=== PATIENT | female | born 1950 | race Caucasian/White ===

== ENCOUNTER 2025-10-10 13:08 | Outpatient (REF) | payer MEDICARE, SELFPAY | END 2025-10-10 13:09 | disposition home or self-care (01) | LOC: HO.LAB 13:08 | PROVIDERS: PCP Nurse Practitioner; Visit Provider Physician Assistant Medical | DX: R09.89 Other specified symptoms and signs involving the circulatory and respiratory systems (principal) | CPT/HCPCS: 99212 ==

== ENCOUNTER 2025-10-10 13:08 | Outpatient (AMB) | payer MEDICARE, SELFPAY ==
--- OUTSIDE RECORDS SUMMARY | 2024-04-11 06:00 | XMS_ITS ---
Author Organization [facility] [place] Address [address] [facility] 1 [place] [address] Care Team Providers Care Manager Float Name Role Phone Migration, Provider Unavailable Unavailable REASON FOR VISIT Follow-up Appt Encounters Encounter Location Date Provider Diagnosis [address] [address] 04/11/2024 Provider Migration Plan Of Treatment No Information Progress Notes * JAYDA PEREAEDOB:[birth year] (74 yo F)Acc No.[id number]:04/11/2024 Progress Notes Patient: Winsome LEYVANEELA ANDRES Provider: Kathi Kaur :1950 A ge:73 Y S ex:Female Date:04/11/2024 Address:[address] [place], [place] Subjective: * Chief Complaints: * F ollow-up Appt * Ocular Surgical History: Objective: Vision Examination: * Electronic signature of Prov ider Migration on 10/10/2025 at 02:12 PM EST Sign off status: Pending * Provider: Kathi dejesus Migration Date: 0 04/11/2024 Generated for Jolanta longo/Sharon/Ruismitting on: 1 12/11/2024 02:12 PM EST
--- OUTSIDE RECORDS SUMMARY | 2024-10-03 05:30 | XMS_ITS ---
Author Organization [facility] [place] Address [address] [facility] [address] [place] [address] Care Team Providers Care Ax Survey Worker Name Role Phone Migration, Provider Unavailable Unavailable REASON FOR VISIT CPX Encounters Encounter Location Date Provider Diagnosis [facility], [address] [address] 10/03/2024 Provider Migration Plan Of Treatment No Information Progress Notes * JAYDA PEREAEDOB:[birth year] (74 yo F)Acc No.[id number]:10/03/2024 Progress Notes Patient: Winsome ANDRES CRUZ Provider: Kathi Kaur :1950 A ge:73 Y S ex:Female Date:10/03/2024 Address[address] [place], [place] Subjective: * Chief Complaints: * C PX * Ocular Surgical History: Objective: Vision Examination: * Electronic signature of Prov ider Migration on 10/10/2025 at 02:11 PM EST Sign off status: Pending * Provider: Kathi dejesus Migration Date: 12/04/2023 Generated for Jolanta longo/Sharon/Ruismitting on: 12/11/2024 02:11 PM EST
--- OUTSIDE RECORDS SUMMARY | 2024-10-25 05:45 | XMS_ITS ---
Author Organization [facility], [place] Address [address] [facility] 1 [place] [address] Care Team Providers Care Licensed Esthetician Name Role Phone Fly Estrella Unavailable [phone] REASON FOR VISIT Sick Visit Encounters Encounter Location Date Provider Diagnosis [address] [address] 10/25/2024 Fly Estrella Plan Of Treatment No Information Progress Notes * JAYDA PEREAEDOB:[birth year] (74 yo F)Acc No.[id number]:10/25/2024 Progress Notes Patient: ANDRES ABBOTT Provider: Bridgette SMITH :1950 A ge:73 Y S ex:Female Date:10/25/2024 Address:[address] [place] [address] [facility] Subjective: * Chief Complaints: * S ick Visit * Ocular Surgical History: Objective: Vision Examination: * Electronic signature of Brandon Estrella PA-C on 10/10/2025 at 02:11 PM EST Sign off status: Pending * Provider: Bridgette SMITH Date: 0 10/25/2024 Generated for Uniquei qing/Sharon/eTransmitting on: 12/11/2024 02:11 PM EST
--- OUTSIDE RECORDS SUMMARY | 2024-12-22 05:30 | XMS_ITS ---
Author Organization [facility], [place] Address [address] [facility] 1 [place] [address] Care Team Providers Care Revenue Coordinator Name Role Phone Fly Estrella Unavailable [phone] REASON FOR VISIT CPX Encounters Encounter Location Date Provider Diagnosis [address] [address] 12/22/2024 Fly Estrella Plan Of Treatment No Information Progress Notes * BRITJAYDAEDOB:[birth year] (74 yo F)Acc No.[id number]:12/22/2024 Progress Notes Patient: ANDRES ABBOTT Provider: Bridgette SMITH :1950 A ge:73 Y S ex:Female Date:12/22/2024 Address:[address] [place], [place] [id number] Subjective: * Chief Complaints: * C PX * Ocular Surgical History: Objective: Vision Examination: * Electronic signature of Brandon Estrella PA-C on 10/10/2025 at 02:11 PM EST Sign off status: Pending * Provider: Bridgette SMITH Date: 0 12/22/2024 Generated for Uniquei qing/Sharon/eTransmitting on: 1 12/11/2024 02:11 PM EST
--- OUTSIDE RECORDS SUMMARY | 2024-12-22 05:30 | XMS_ITS ---
Author Organization [facility] [place] Address [address] [facility] [address] [place] [address] Care Team Providers Care Outside Upholsterer Name Role Phone Migration, Provider Unavailable Unavailable REASON FOR VISIT CPX Encounters Encounter Location Date Provider Diagnosis [facility], [address] [address] 12/22/2024 Provider Migration Plan Of Treatment No Information Progress Notes * JAYDA PEREAEDOB:[birth year] (74 yo F)Acc No.[id number]:12/22/2024 Progress Notes Patient: Winsome ANDRES CRUZ Provider: Kathi Kaur :1950 A ge:73 Y S ex:Female Date:12/22/2024 Address[address] [place], [place] Subjective: * Chief Complaints: * C PX * Ocular Surgical History: Objective: Vision Examination: * Electronic signature of Prov ider Migration on 10/10/2025 at 02:11 PM EST Sign off status: Pending * Provider: Kathi dejesus Migration Date: 0 12/22/2024 Generated for Jolanta longo/Sharon/Ruismitting on: 1 12/11/2024 02:11 PM EST
--- OUTSIDE RECORDS SUMMARY | 2025-01-24 05:45 | XMS_ITS ---
Author Organization [facility] [place] Address [address] [facility] 1 [place] [address] Care Team Providers Care Loans Officer Name Role Phone Fly Estrella Unavailable [phone] REASON FOR VISIT Follow-up Appt Encounters Encounter Location Date Provider Diagnosis [address] [address] 01/24/2025 Fly Estrella Plan Of Treatment No Information Progress Notes * JAYDA PEREAEDOB:[birth year] (74 yo F)Acc No.[id number]:01/24/2025 Progress Notes Patient: ANDRES ABBOTT Provider: Bridgette SMITH :1950 A ge:74 Y S ex:Female Date:01/24/2025 Address:[facility] [address] [place], [place] Subjective: * Chief Complaints: * F ollow-up Appt * Ocular Surgical History: Objective: Vision Examination: * Electronic signature of Brandon Estrella PA-C on 10/10/2025 at 02:11 PM EST Sign off status: Pending * Provider: Bridgette SMITH Date: 0 01/24/2025 Generated for Uniquei ng/Facleo/eTransmitting on: 1 12/11/2024 02:11 PM EST
[2025-10-10 13:22] VITALS: BP 130/82; PULSE 74; TEMP 36.9; O2SAT 97; BMI 34.9
--- NOTE | 2025-10-10 13:22 | MHC.OFFWIV ---
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 Patient Tobacco Use Status: Former Tobacco user Allergies No Known Allergies Allergy (Verified 10/10/25 13:30) HPI HPI Comments History of Present Illness Details History - The patient is a 74 year old female who presents for evaluation of acute upper respiratory symptoms. - Her symptoms began the previous afternoon and include headache, nonproductive cough, significant rhinorrhea, and a sensation of blocked ears which she attributes to sinus congestion. - She denies diarrhea, abd pain, nausea, or vomiting. - The patient has a past medical history of COVID-19, which she states was confined to her head and did not involve her chest. - She also reports intermittent exertional shortness of breath, which she attributes to her metoprolol medication. - She has no sick contacts or recent travel. - She is a non-smoker. Physical Exam General: Cooperative, healthy appearing, comfortable and no acute distress Orientation/consciousness: Patient oriented x3 Limitations: No limitations Head: Normal to inspection Ears: Hearing grossly normal bilaterally, external ears normal and TM's normal bilaterally Nose: Normal external nose present, normal nares present, and nasal discharge present. Face and sinus: Sinuses nontender to palpation. Mouth: Normal oral and palatal mucosa present and moist mucous membranes noted. Throat: Tonsils normal. Uvula is midline. Posterior oropharynx with erythema and no exudates. Eyes: Appearance normal, both eyes and all related structures Neck: Normal visual inspection, full ROM. No lymphadenopathy noted. Respiratory: Clear to auscultation bilaterally. Normal respiratory effort, able to speak in complete sentences. No respiratory distress, not tachypneic, no tripod positioning and no use of accessory muscles. Cardiovascular: Regular rate and rhythm. Normal S1 and S2 Skin: No rashes or lesions noted Patient was informed and verbally consented to the use of an ambient scribe for clinic note documentation during this visit PFS Social History Patient Tobacco Use Status: Former Tobacco user Review of Systems Const All systems reviewed & are unremarkable except as noted in HPI and below Physical Exam Vital Signs: Last Vital Signs Temp 98.4 F 10/10/25 13:22 Pulse 74 10/10/25 13:22 BP 130/82 10/10/25 13:22 Pulse Ox 97 10/10/25 13:22 Oxygen Delivery Method Room Air 10/10/25 13:22 BMI result Body Mass Index 34.9 Assessment & Plan Assessment & Plan (1) Viral upper respiratory illness: Code(s): J06.9 - Acute upper respiratory infection, unspecified Plan Most likely Acute Upper Respiratory Infection vs flu vs covid vs RSV plan - The patient's presentation is consistent with a viral upper respiratory infection. - A nasopharyngeal swab for COVID-19, influenza, and RSV was performed for diagnostic testing. - Prescriptions for cough medicine, an inhaler, a nasal decongestant, and prednisone were sent to the pharmacy for symptomatic relief. - A follow-up call will be made with the test results later today to guide further management. Orders: Orders SARS-CoV2/FLU/RSV Today R09.89 - Other specified symptoms and signs involving the circulatory and respiratory systems Medications: New fluticasone propionate 50 mcg/actuation administer into each nostril 1 spray intranasal Q12H 16 grams 0RF cetirizine-pseudoephedrine 5-120 mg ER 1 tab PO BID 14 tabs 0RF 7 days benzonatate 100 mg PO bid-tid PRN 21 caps 0RF Cough 7 days prednisone 40 mg (2 x 20 mg) PO DAILY 10 tabs 0RF 5 days Coding Level of Care Code Est Pt Level 3 (47610) Diagnoses Viral upper respiratory illness J06.9
--- OUTSIDE RECORDS SUMMARY | 2025-10-10 14:11 | XMS_ITS | Clinical Summary ---
Author Organization [facility] Address [address] [place] [address] Care Team Providers Care Post Anesthesia Care Unit Nurse Name Role Phone Jesse Anthony MD Primary Care Provider [phone] Allergies No known active allergies Social History Tobacco Use Types Packs/Day Years Used Date Smoking Tobacco: Never Assessed Comments No Sex and Gender Information Value Date Recorded Sex Assigned at Not on file Legal Sex Female 3:23 PM EST Gender Identity Not on file Sexual Orientation Not on file Last Filed Vital Signs Vital Sign Reading Time Taken Comments Blood Pressure 187/81 12/16/2021 5:51 PM EST Pulse 56 12/16/2021 5:51 PM EST Temperature 36.5 C (97.7 F) 12/16/2021 5:51 PM EST Respiratory Rate 18 12/16/2021 5:51 PM EST Oxygen Saturation 99% 12/16/2021 5:51 PM EST Inhaled Oxygen Concentration - - Weight - - Height - - Body Mass Index - - Plan of Treatment Health Maintenance Due Date Last Done Comments Advance Care Planning 1950 Hepatitis C Virus Screening 1950 DTaP/Tdap/Td Vaccines (1 - Tdap) 12/27/1970 Mammogram 1991 Colonoscopy 12/27/1996 Pneumococcal Vaccines 50+ (1 of 1 - PCV) 12/27/2001 Zoster (Shingles) Vaccine (1 of 2) 12/27/2001 DXA Bone Density (Females,Ag es 65 and older) 12/27/2016 Influenza Vaccine 05/19/2025 COVID-19 Vaccine ( - 2024-2 6 season) 2025 RSV Vaccine 50 years and old er and Patients (1 - 1-dose 75+ series) 12/27/2026 Hepatitis B Vaccines Aged Out No long er eligible based on patient's age to complete this topic Insurance [facility] [employer] Care Teams Post Anesthesia Care Unit Nurse Relationship Specialty Start Date End Date Jesse Anthony MD [address] [place] [id number] PCP - General 12/16/21
--- OUTSIDE RECORDS SUMMARY | 2025-10-10 14:11 | XMS_ITS | Patient Health Record ---
Author Organization [facility], [place] Address [address] [facility] [address] [place] [address] Care Team Providers Care Radiology Special Procedure Tech Name Role Phone Fly Estrella Unavailable [phone] Migration, Provider Unavailable Unavailable Reason For Referral No Information Encounters Encounter Location Date Provider Diagnosis [facility] [place] [address] [address] 10/25/2024 Fly Estrella [facility] [place] [address] [address] 12/22/2024 Fly Estrella [facility] [place] [address] [address] 12/22/2024 Provider Migration [facility] [address] [facility] [address] [address] 01/24/2025 Fly Estrella Plan Of Treatment No Information Insurance Providers Payer Name Payer Address Payer Phone Subscriber Number Group Number Insured Name Patient Relationship to Insured Coverage Start Date Coverage End Date [employer] [place] [employer] Pf [address] [place] [phone] [id number] ANDRES PEREA Self - patient is the insured
--- OUTSIDE RECORDS SUMMARY | 2025-10-10 14:11 | XMS_ITS | Encounter Summary ---
Author Organization [facility] Address [address] [place] [address] Care Team Providers Care Facility Attendant Name Role Phone Jesse Anthony MD Primary Care Provider [phone] Encounter Details Date Type Department Care Team (Late st Contact Info) Description 10/25/2024 Lab Requisition [facility] - Main Lab [address] [facility] [place] [id number] Fly Estrella PA [address] [facility] [address] [place] [address] Acute upper respiratory infection, unspecified Social History Tobacco Use Types Packs/Day Years Used Date Smoking Tobacco: Former Smokeless Tobacco: Never Alcohol Use Standard Drinks/Week Comments Yes 0 (1 standard drink = 0.6 oz pur e alcohol) Comments Unknown Sex and Gender Information Value Date Recorded Sex Assigned at Female 01/04/2025 11:17 AM EDT Legal Sex Female 11:35 AM EDT Gender Identity Female 01/04/2025 11:17 AM EDT Sexual Orientation Choose not to disclose 2024 11:17 AM EDT documented as of this encounter Plan of Treatment Not on file documented as of this encounter Procedures Procedure Name Priority Date/Time Associated Diagnosis Comments [id number], RSV, FLU A AND B QUALITATIVE RT-PCR, LOCAL REFERENCE LAB Routine 10/25/2024 12:00 AM EST Acute upper respiratory infection, unspecified documented in this encounter Results * [id number], RSV, Influenza A and B qualitative RT-PCR (10/25/2024 12:00 AM EST) SARS COV-2 Not Detected Not Detected LAB MOLECULAR DIAGNOSTICS METHOD 10/25/2024 11:44 PM [facility] Comment: Disclaimer: The manner in which this information is used to guide patient care is the responsibility of the healthcare provider. Testing was performed using the [employer] Alinity m SARS-CoV-2 test. This test has been authorized by FDA under an Emergency Use Authorization (EUA). This test is only authorized for the duration of time the declaration that circumstances exist justifying the authorization of the emergency use of in vitro diagnostic tests for detection of SARS-CoV-2 virus and/or diagnosis of COVID-19 infection under section 564(b)(1) of the Act, 21 U.S.C. 360bbb- 3(b)(1), unless the authorization is terminated or revoked sooner. Fact sheet for Healthcare Providers can be found at: https://www.fda.gov/media/475151/download Fact sheet for Patients can be found at: https://www.fda.gov/media/292505/download Influenza A PCR Not Detected Not Detected LAB MOLECULAR DIAGNOSTICS METHOD 10/25/2024 11:44 PM EST [facility] Influenza B PCR Not Detected Not Detected LAB MOLECULAR DIAGNOSTICS METHOD 10/25/2024 11:44 PM EST [facility] RSV PCR Not Detected Not Detected LAB MOLECULAR DIAGNOSTICS METHOD 10/25/2024 11:44 PM [facility] Swab Nasopharyngeal structure / Unknown 10/25/2024 10/25/2024 6:11 PM EST us Fly SMITH LAB MICROBIOLOGY - GENERAL ORD ERABLES Final Result [facility] [address] [place] [address], documented in this encounter Visit Diagnoses Diagnosis Acute upper respiratory infection, unspecified documented in this encounter Additional Health Concerns Infection Onset Date Last Indicated Resolved Time Respiratory Rule-Out 10/25/2024 10/25/2024 025 11:44 PM EST documented as of this encounter Care Teams Facility Attendant Relationship Specialty Start Date End Date Jesse Anthony MD [address] [place] [id number] PCP - General Internal Medicine 10/07/11 documented as of this encounter
--- OUTSIDE RECORDS SUMMARY | 2025-10-10 14:11 | XMS_ITS | Encounter Summary ---
Author Organization [facility] Address [address] [place] [address] Care Team Providers Care Customer Program Specialist Name Role Phone Jesse Anthony MD Primary Care Provider [phone] Encounter Details Date Type Department Care Team (Late st Contact Info) Description 12/22/2024 Lab Requisition [facility] - Main Lab [address] [facility] [place] [address] Luis Garrett MD [address] [facility] [address] [place] [phone] Urinary tract infection, site not specified Social History Tobacco Use Types Packs/Day Years [...] on file documented as of this encounter Visit Diagnoses Diagnosis Urinary tract infection, site not specified documented in this encounter Care Teams Customer Program Specialist Relationship Specialty Start Date End Date Jesse Anthony MD [address] [facility] [address] [place] [phone] PCP - General Internal Medicine 10/07/11 documented as of this encounter
--- OUTSIDE RECORDS SUMMARY | 2025-10-10 14:11 | XMS_ITS | Clinical Summary ---
Author Organization [facility] Address [address] [place] [address] Care Team Providers Care Flow Floor Attendant Name Role Phone Ming Anthony MD Primary Care Provider [phone] Surgical History Surgery Date Site/Laterality Comments HERNIA REPAIR PROCEDURE: AK REPAIR FIRST ABDOMINAL WALL HERNIA CHOLECYSTECTOMY PROCEDURE: AK LAPAROSCOPY SURG CHOLECYSTECTOMY OTHER SURGICAL HISTORY PROCEDURE: HISTORICAL MELANOMA KNEE SURGERY PROCEDURE: HISTORICAL KNEE SURGERY; COMMENT: maniscus and left knee replacement Medical History Medical History Date Comments Hypertension DX:Hypertension Hypothyroidism DX:Hypothyroidis m Family History Medical History Relation Name Comments Diabetes Father Prostate cancer Father Stroke Father Lung cancer Mother Other: venacava syndrome Mother Relation Name Status Comments Father Mother Social History Tobacco Use Types Packs/Day Years [...] not to disclose 2024 11:17 AM EDT Last Filed Vital Signs Vital Sign Reading Time Taken Comments Blood Pressure 143/95 04/16/2022 10:49 AM EDT Pulse 67 04/16/2022 10:49 AM EDT Temperature - - Respiratory Rate - - Oxygen Saturation - - Inhaled Oxygen Concentration - - Weight 125 kg (276 lb) 08/22/2022 10:25 AM EDT Height 174 cm (5' 8.5 ) 04/16/2022 10:49 AM EDT Body Mass Index 41.36 04/16/2022 10:49 AM EDT Plan of Treatment Health Maintenance Due Date Last Done Comments Colorectal Cancer Screening: Colonoscopy 1950 Zoster Vaccines (1 of 2) 12/27/2001 Falls Risk Assessment 03/15/2020 Hepatitis C Screening 03/15/2020 Medicare Annual Wellness Visit 03/15/2020 Social Influencers of Health Screening 03/15/2020 Breast Cancer Screening 07/09/2024 07/09/20 22, 10/10/2019, 03/24/2018 Depression Screening 10/19/2024 COVID-19 Vaccine ( season) 2025 09/23/2024, 10/23/2023, 08/08/2022, Additional history exists Influenza Vaccine (#1) 2025 , 06/19/2022, 06/08/2021, Additional history exists Hypertension/CHF/CAD Annual BMP Blood Test 12/22/2025 12/22/2024, 12/16/2021, 12/16/2021 Osteoporosis Screening (Bone Density Screening) 06/15/2028 06/15/2018 Cholesterol Screening (Lipid Panel) 12/22/2029 12/22/2024 DTaP,Tdap,and Td Vaccines (3 - Td or Tdap) 05/16/2034 05/16/2024, 10/16/2006 Pneumococcal Vaccine: 50+ Years Completed 05/23/2018, 01/20/2017 RSV Immunization Adult Patients Completed 01/01/2024 HIB Vaccines Aged Out No longer eligi ble based on patient's age to complete this topic HPV Vaccines Aged Out No longer eligi ble based on patient's age to complete this topic Hepatitis A Vaccines Aged Out No long er eligible based on patient's age to complete this topic Hepatitis B Vaccines Aged Out No long er eligible based on patient's age to complete this topic IPV Vaccines Aged Out No longer eligi ble based on patient's age to complete this topic MMR Vaccines Aged Out No longer eligi ble based on patient's age to complete this topic Meningococcal ACWY Vaccine Aged Out N o longer eligible based on patient's age to complete this topic Meningococcal B Vaccine Aged Out No l onger eligible based on patient's age to complete this topic RSV Immunization Patients Under 20 months Aged Out No longer eligible based on patient's age to complete this topic Varicella Vaccines Aged Out No longer eligible based on patient's age to complete this topic Procedures Procedure Name Priority Date/Time Associated Diagnosis Comments COMPREHENSIVE METABOLIC PANEL Routine 12/22/2024 12:00 AM EST Hypothyroidism, unspecified Other fatigue Encounter for general adult medical examination without abnormal findings Gout, unspecified Vitamin D deficiency, unspecified LIPID PANEL WITH REFLEX TO DIRECT LDL Routine 12/22/2024 12:00 AM EST Hypothyroidism, unspecified Other fatigue Encounter for general adult medical examination without abnormal findings Gout, unspecified Vitamin D deficiency, unspecified [facility] SCREENING DIGITAL Routine 07/09/2022 3:13 PM EDT Encounter for screening mammogram for malignant neoplasm of breast [facility] DEXA AXIAL SKELETON Routine 06/15/2018 10:27 AM EDT Encounter for screening for osteoporosis from Last 3 Months or Most Recently Relevant to Health Maintenance Results * (ABNORMAL) Lipid panel with reflex to direct LDL (12/22/2024 12:00 AM EST) Cholesterol 230(H) 0 - 200 mg/dL LAB CHEMISTRY METHOD 12/22/2024 7:20 PM [facility] Triglycerides 107 0 - 150 mg/dL LAB CHEMISTRY METHOD 12/22/2024 7:20 PM [facility] HDL 68 >=40 mg/dL LAB CHEMISTRY METHOD 12/22/2024 7:20 PM [facility] LDL Calculated 141(H) 0 - 100 mg/dL LAB CHEMISTRY METHOD 12/22/2024 7:20 PM [facility] VLDL Cholesterol Julio C 21.4 mg/dL LAB CHEMISTRY METHOD 12/22/2024 7:20 PM [facility] Non HDL Chol. (LDL+VLDL) 162(H) <145 mg/dL LAB CHEMISTRY METHOD 12/22/2024 7:20 PM [facility] Chol/HDL Ratio 3.4 0.0 - 4.4 LAB CHEMISTRY METHOD 12/22/2024 7:20 PM [facility] Blood Venous blood specimen / Unknown 12/22/2024 12/22/2024 6:11 PM EST us Fly [facility]ITH LAB BLOOD ORDERABLES Final Res ult [facility] [address] [place] [address], [place] [phone] * Comprehensive metabolic panel (12/22/2024 12:00 AM EST) Sodium 138 133 - 145 mmol/L LAB CHEMISTRY METHOD 12/22/2024 7:21 PM [facility] Potassium 4.9 3.5 - 5.5 mmol/L LAB CHEMISTRY METHOD 12/22/2024 7:21 PM [facility] Chloride 104 96 - 110 mmol/L LAB CHEMISTRY METHOD 12/22/2024 7:21 PM [facility] CO2 26 21 - 32 mmol/L LAB CHEMISTRY METHOD 12/22/2024 7:21 PM [facility] Anion Gap 8 3 - 11 LAB CHEMISTRY METHOD 12/22/2024 7:21 PM [facility] Glucose 76 70 - 100 mg/dL LAB CHEMISTRY METHOD 12/22/2024 7:21 PM [facility] BUN 11 5 - 25 mg/dL LAB CHEMISTRY METHOD 12/22/2024 7:21 PM [facility] Creatinine 0.74 0.50 - 1.10 mg/dL LAB CHEMISTRY METHOD 12/22/2024 7:21 PM [facility] eGFR 86 >=60 mL/min/1. 73m2 LAB CHEMISTRY METHOD 12/22/2024 7:21 PM [facility] Comment:Calculation based on the Chronic Kidney Disease Epidemiology Collaboration (CKD-EPI) equation refit without adjustment for race. BUN/Creatinine Ratio 14.9 LAB CHEMISTRY METHOD 12/22/2024 7:21 PM [facility] Calcium 9.4 8.5 - 10.5 mg/dL LAB CHEMISTRY METHOD 12/22/2024 7:21 PM [facility] AST (SGOT) 22 10 - 42 unit/L LAB CHEMISTRY METHOD 12/22/2024 7:21 PM [facility] ALT (SGPT) 19 10 - 60 unit/L LAB CHEMISTRY METHOD 12/22/2024 7:21 PM [facility] Alkaline Phosphatase 110 42 - 121 unit/L LAB CHEMISTRY METHOD 12/22/2024 7:21 PM [facility] Total Protein 6.6 6.0 - 8.0 g/dL LAB CHEMISTRY METHOD 12/22/2024 7:21 PM [facility] Albumin 3.3 3.2 - 5.0 g/dL LAB CHEMISTRY METHOD 12/22/2024 7:21 PM [facility] Total Bilirubin 0.5 0.0 - 1.4 mg/dL LAB CHEMISTRY METHOD 12/22/2024 7:21 PM [facility] Blood Venous blood specimen / Unknown 12/22/2024 12/22/2024 6:11 PM EST us [facility] LAB BLOOD ORDERABLES Final Res ult [facility] [address] [place] [address], [place] [phone] * KALLIE SCREENING DIGITAL (07/09/2022 3:13 PM EDT) Anatomical Region Laterality Modality Mammography 07/09/2022 10:0 9 AM EDT Narrative 07/09/2022 3:13 PM EDT [facility] Diagnostic Imaging Department [address] [place] [address] Patient: ANDRES WILLS /Age/Sex: 1950 - 71 - F Unit#: [id number] Location/Status: [facility] CLI Mnemonic/Ordering Site: [facility] Ordering Physician: MING ANTHONY MD Kallie Screening Digital - 07/09/22 - 1105 History: Bilateral breast cancer screening. Technique: Bilateral digital mammography. Conventional CC and MLO projections with tomosynthesis MLO views and computer aided detection. Findings: Comparison: [facility] 10/10/2019, dating back to 01/17/2013. Breast tissue is mostly fatty replaced (category a density) bilaterally (as calculated by EXPOpara software). There are benign calcifications bilaterally. There is no suspicious group of microcalcification, no suspicious mass, architectural distortion or suspicious asymmetry. Impression: No evidence of malignancy. BIRADS category 2, benign findings, 3342F 47382, 83225 Note: Patient information entered into a reminder system with a target due date for the next mammogram; PQRI II 7018F Dictating Physician: MIGUELITO TYLER MD Electronically Signed by: MIGUELITO TYLER MD Dic Date/Time: 07/09/22 1509 Sign date/Time: 07/09/22 1513 Procedure Note Miguelito Tyler MD - 10/08/2022 [facility] Diagnostic Imaging Department [address] [place] [id number] Patient: ANDRES WILLS Fadi Herron/Age/Sex: 1950 - 71 - F Unit#: [id number] Location/Status: SPDIMAM/REG CLI Mnemonic/Ordering Site: [facility] Ordering Physician: MING ANTHONY MD Kallie Screening Digital - 07/09/22 - 1105 History: Bilateral breast cancer screening. Technique: Bilateral digital mammography. Conventional CC and MLOprojections with tomosynthesis MLO views and computer aided detection. Findings: Comparison: [facility] 10/10/2019, dating back to 01/17/2013. Breast tissue is mostly fatty replaced (category a density) bilaterally(as calculated by [employer] Volpara software). There are benigncalcifications bilaterally. There is no suspicious group of microcalcification, nosuspicious mass, architectural distortion or suspicious asymmetry. Impression: No evidence of malignancy. BIRADS category 2, benign findings, 3342F 86757, [address]321 Note: Patient information entered into a reminder system with a targetdue date for the next mammogram; PQRI II 7025F Dictating Physician: MIGUELITO TYLER MD Electronically Signed by: MIGUELITO TYLER MD Dic Date/Time: 07/09/22 1508 Sign date/Time: 07/09/22 1513 us Ming Anthony MD IMG BI PROCEDURES Final Result * KALLIE DEXA AXIAL SKELETON (06/15/2018 10:27 AM EDT) Anatomical Region Laterality Modality Mammography 06/15/2018 9:27 AM EDT Narrative 06/15/2018 10:27 AM EDT [facility] Diagnostic Imaging Department [address] [place], [place] [id number] Patient: ANDRES WILLS Fadi OwensB./Age/Sex: 1950 - 67 - F Unit#: [id number] Location/Status: SPDIMAM/REG CLI Mnemonic/Ordering Site: [facility] Ordering Physician: DEMARCUS MCQUEEN MD Kallie Dexa Axial Skeleton - 06/15/184 HISTORY: The patient is a 67-year-old postmenopausal female with clinical concern for metabolic bone disease. FINDINGS: Dual energy x-ray absorptiometry of the lumbar spine and femurs is performed. The mean bone mineral density at L1-3 is 1.133 gm/cm2 which is 97% of that of young normals and 101% of that of age matched controls. This yields a T- score of -0.3 and a Z-score of 0.1 and there is therefore no evidence of osteoporosis or osteopenia here. The mean bone mineral density of the femurs bilaterally is 1.025 gm/cm2 which is 102% of that of young normals and 108% of that of age matched controls. This yields a T-score of 0.1 and a Z-score of 0.6 and there is therefore no evidence of osteoporosis or osteopenia here. IMPRESSION: 1. There is no evidence of osteoporosis or osteopenia. There has been an increase of 0.1% in bone mineral density in the lumbar spine since the prior examination of 08/05/2011. There has been a decrease of 10.1% in bone mineral density in the right femur and a decrease of 7.9% in bone mineral density in the left femur. 2. FRAX analysis yields a 10-year probability of major osteoporotic fracture of 6.5% and a 10-year probability of hip fracture of 0.2%. Code 46080 Dictating Physician: PHILOMENA GUSMAN MD Electronically Signed by: PHILOMENA GUSMAN MD Dic Date/Time: 06/15/18 1025 Sign date/Time: 06/15/18 1027 Procedure Note Philomena Gusman MD - 10/07/2022 [facility] Diagnostic Imaging Department [address] [place] [address] Patient: ANDRES WILLS D.O.B./Age/Sex: 1950 67 - F Unit#: [id number] Location/Status: [facility] Mnemonic/Ordering Site: [facility] Ordering Physician: DEMARCUS MCQUEEN MD [facility] Dexa Axial Skeleton - 06/15/18 - 1014 HISTORY: The patient is a 67-year-old postmenopausal female withclinical concern for metabolic bone disease. FINDINGS: Dual energy x-ray absorptiometry of the lumbar spine and femursis performed. The mean bone mineral density at L1-3 is 1.133 gm/cm2 which is97% of that of young normals and 101% of that of age matched controls. Thisyields a T- score of -0.3 and a Z-score of 0.1 and there is therefore no evidence of osteoporosis or osteopenia here. The mean bone mineral density of the femurs bilaterally is 1.025 gm/vt0tcdvy is 102% of that of young normals and 108% of that of age matched controls.This yields a T-score of 0.1 and a Z-score of 0.6 and there is therefore noevidence of osteoporosis or osteopenia here. IMPRESSION: 1. There is no evidence of osteoporosis or osteopenia. There has beenan increase of 0.1% in bone mineral density in the lumbar spine since theprior examination of 08/05/2011. There has been a decrease of 10.1% in bonemineral density in the right femur and a decrease of 7.9% in bone mineral densityin the left femur. 2. FRAX analysis yields a 10-year probability of major osteoporoticfracture of 6.5% and a 10-year probability of hip fracture of 0.2%. Code 35715 Dictating Physician: PHILOMENA GUSMAN MD Electronically Signed by: PHILOMENA GUSMAN MD Dic Date/Time: 06/15/18 1025 Sign date/Time: 06/15/18 1027 Demarcus Mcqueen MD IMG BI PROCEDURES Final Re sult from Last 3 Months or Most Recently Relevant to Health Maintenance Insurance MEDIC[place] Care Teams Flow Floor Attendant Relationship Specialty Start Date End Date Ming Anthony MD [address] [place] [phone] PCP - General Internal Medicine 10/07/11
--- OUTSIDE RECORDS SUMMARY | 2025-10-10 14:11 | XMS_ITS | Encounter Summary ---
Author Organization [facility] Address [address] [place] [address] Care Team Providers Care Seat Covers Trimmer Name Role Phone Jesse Anthony MD Primary Care Provider [phone] Encounter Details Date Type Department Care Team (Late st Contact Info) Description 12/22/[address] [facility] - Main Lab [address] [facility] [place] [id number] Fly Estrella PA [address] [facility] [address] [place] [address] Hypothyroidism, unspecified; Other fatigue; Encounter for general adult medical examination without abnormal findings; Gout, unspecified; Vitamin D deficiency, unspecified Social History Tobacco Use Types Packs/Day [...] Procedure Name Priority Date/Time Associated Diagnosis Comments SST - GOLD Routine 12/22/2024 12:00 AM EST Hypothyroidism, unspecified Other fatigue Encounter for general adult medical examination without abnormal findings Gout, unspecified Vitamin D deficiency, unspecified LIPID PANEL WITH REFLEX TO DIRECT LDL Routine 12/22/2024 12:00 AM EST Hypothyroidism, unspecified Other fatigue Encounter for general adult medical examination without abnormal findings Gout, unspecified Vitamin D deficiency, unspecified CBC WITH AUTO DIFFERENTIAL Routine 12/22/2024 12:00 AM EST Hypothyroidism, unspecified Other fatigue Encounter for general adult medical examination without abnormal findings Gout, unspecified Vitamin D deficiency, unspecified VITAMIN D 25 HYDROXY Routine 12/22/2024 12:00 AM EST Hypothyroidism, unspecified Other fatigue Encounter for general adult medical examination without abnormal findings Gout, unspecified Vitamin D deficiency, unspecified CBC AND DIFFERENTIAL Routine 12/22/2024 12:00 AM EST Hypothyroidism, unspecified Other fatigue Encounter for general adult medical examination without abnormal findings Gout, unspecified Vitamin D deficiency, unspecified THYROID STIMULATING HORMONE Routine 12/22/2024 12:00 AM EST Hypothyroidism, unspecified Other fatigue Encounter for general adult medical examination without abnormal findings Gout, unspecified Vitamin D deficiency, unspecified THYROXINE FREE Routine 12/22/2024 12:00 AM EST Hypothyroidism, unspecified Other fatigue Encounter for general adult medical examination without abnormal findings Gout, unspecified Vitamin D deficiency, unspecified HEMOGLOBIN A1C Routine 12/22/2024 12:00 AM EST Hypothyroidism, unspecified Other fatigue Encounter for general adult medical examination without abnormal findings Gout, unspecified Vitamin D deficiency, unspecified COMPREHENSIVE METABOLIC PANEL Routine 12/22/2024 12:00 AM EST Hypothyroidism, unspecified Other fatigue Encounter for general adult medical examination without abnormal findings Gout, unspecified Vitamin D deficiency, unspecified documented in this encounter Results * SST tube (12/22/2024 12:00 AM EST) Extra Tube Hold for add-ons. 12/22/2024 8:01 PM EST [facility] Comment:Auto resulted. Blood Venous blood specimen / Unknown 12/22/2024 12/22/2024 6:11 PM EST us Fly SMITH LAB BLOOD ORDERABLES Final Res ult [facility] [address] [place] [address], [place] [phone] * (ABNORMAL) CBC auto differential (12/22/2024 12:00 AM EST) WBC 5.0 4.8 - 10.8 K/mcL LAB HEMETOLOGY METHOD 12/22/2024 7:58 PM [facility] RBC 4.60 3.80 - 4.80 M/mcL LAB HEMETOLOGY METHOD 12/22/2024 7:58 PM [facility] Hemoglobin 13.8 11.5 - 16.0 g/dL LAB HEMETOLOGY METHOD 12/22/2024 7:58 PM [facility] Hematocrit 44.0 35.0 - 47.0 % LAB HEMETOLOGY METHOD 12/22/2024 7:58 PM [facility] MCV 95.9 79.0 - 98.0 FL LAB HEMETOLOGY METHOD 12/22/2024 7:58 PM [facility] MCH 30.1 27.0 - 32.0 pcg LAB HEMETOLOGY METHOD 12/22/2024 7:58 PM [facility] MCHC 31.4(L) 32.0 - 37.0 g/dL LAB HEMETOLOGY METHOD 12/22/2024 7:58 PM [facility] RDW 11.9 11.0 - 15.0 % LAB HEMETOLOGY METHOD 12/22/2024 7:58 PM [facility] Platelets 314 130 - 400 K/mcL LAB HEMETOLOGY METHOD 12/22/2024 7:58 PM [facility] MPV 10.4 7.0 - 11.0 FL LAB HEMETOLOGY METHOD 12/22/2024 7:58 PM [facility] NRBC 0.0 <1.0 % LAB HEMETOLOGY METHOD 12/22/2024 7:58 PM [facility] NRBC Absolute 0.00 <0.10 K/mcL LAB HEMETOLOGY METHOD 12/22/2024 7:58 PM [facility] Neutrophils Relative 52.1 % LAB HEMETOLOGY METHOD 12/22/2024 7:58 PM [facility] Lymphocytes Relative 34.9 % LAB HEMETOLOGY METHOD 12/22/2024 7:58 PM [facility] Monocytes Relative 7.2 % LAB HEMETOLOGY METHOD 12/22/2024 7:58 PM [facility] Eosinophils Relative 3.6 % LAB HEMETOLOGY METHOD 12/22/2024 7:58 PM [facility] Basophils Relative 1.8 % LAB HEMETOLOGY METHOD 12/22/2024 7:58 PM [facility] Immature Granulocytes Relative 0.4 % LAB HEMETOLOGY METHOD 12/22/2024 7:58 PM [facility] Neutrophils Absolute 2.62 1.50 - 7.00 K/mcL LAB HEMETOLOGY METHOD 12/22/2024 7:58 PM [facility] Lymphocytes Absolute 1.75 1.00 - 5.00 K/mcL LAB HEMETOLOGY METHOD 12/22/2024 7:58 PM [facility] Monocytes Absolute 0.36 0.20 - 1.00 K/mcL LAB HEMETOLOGY METHOD 12/22/2024 7:58 PM [facility] Eosinophils Absolute 0.18 0.00 - 0.50 K/mcL LAB HEMETOLOGY METHOD 12/22/2024 7:58 PM [facility] Basophils Absolute 0.09 0.00 - 0.20 K/mcL LAB HEMETOLOGY METHOD 12/22/2024 7:58 PM EST [facility] Immature Granulocytes Absolute 0.02 0.00 - 0.03 K/[facility] LAB HEMETOLOGY METHOD 12/22/2024 7:58 PM EST [facility] Blood Venous blood specimen / Unknown 12/22/2024 12/22/2024 6:11 PM EST Fly SMITH LAB BLOOD ORDERABLES Final Res ult [facility] [address] [place] [address], [place] [phone] * (ABNORMAL) Vitamin D 25 hydroxy (12/22/2024 12:00 AM EST) Vit D, 25-Hydroxy 21.7(L) 30.0 - 80.0 ng/mL LAB CHEMISTRY METHOD 12/22/2024 7:27 PM EST [facility] Blood Venous blood specimen / Unknown 12/22/2024 12/22/2024 6:11 PM EST Fly [facility] LAB BLOOD ORDERABLES Final Res ult [facility] [address] [place] [address], [place] [phone] * (ABNORMAL) Thyroid stimulating hormone (12/22/2024 12:00 AM EST) TSH 0.24(L) 0.40 - 4.00 mcIU/mL LAB CHEMISTRY METHOD 12/22/2024 7:28 PM EST [facility] Blood Venous blood specimen / Unknown 12/22/2024 12/22/2024 6:11 PM EST us Fly SMITH LAB BLOOD ORDERABLES Final Res ult Performing Organization Address City/[facility]/ZIP Co de Phone Number [facility] [address] [place] [address], [place] [phone] * Hemoglobin A1c (12/22/2024 12:00 AM EST) Hemoglobin A1C 5.6 <6.5 % LAB CHEMISTRY METHOD 12/23/2024 10:33 AM EST [facility] Mean Bld Glu Estim. 114 mg/dL LAB CHEMISTRY METHOD 12/23/2024 10:33 AM EST [facility] Blood Venous blood specimen / Unknown 12/22/2024 12/22/2024 6:11 PM EST us Fly [facility] LAB BLOOD ORDERABLES Final Res ult Performing Organization Address [facility]/ZIP Co de Phone Number [facility] [address] [place] [address], [place] [phone] * Thyroxine free (12/22/2024 12:00 AM EST) Free T4 1.40 0.70 - 1.80 ng/dL LAB CHEMISTRY METHOD 12/22/2024 7:28 PM EST [facility] Blood Venous blood specimen / Unknown 12/22/2024 12/22/2024 6:11 PM EST Fly [facility] LAB BLOOD ORDERABLES Final Res ult Performing Organization Address City/[facility]/ZIP Co de Phone Number [facility] [address] [place] [address], [place] [phone] * (ABNORMAL) Lipid panel with reflex to direct LDL (12/22/2024 12:00 AM EST) Cholesterol 230(H) 0 - 200 mg/dL LAB CHEMISTRY METHOD 12/22/2024 7:20 PM EST [facility] Triglycerides 107 0 - 150 mg/dL LAB CHEMISTRY METHOD 12/22/2024 7:20 PM [facility] HDL 68 >=40 mg/dL LAB CHEMISTRY METHOD 12/22/2024 7:20 PM [facility] LDL Calculated 141(H) 0 - 100 mg/dL LAB CHEMISTRY METHOD 12/22/2024 7:20 PM [facility] VLDL Cholesterol Julio C 21.4 mg/dL LAB CHEMISTRY METHOD 12/22/2024 7:20 PM [facility] Non HDL Chol. (LDL+VLDL) 162(H) <145 mg/dL LAB CHEMISTRY METHOD 12/22/2024 7:20 PM [facility] Chol/HDL Ratio 3.4 0.0 - 4.4 LAB CHEMISTRY METHOD 12/22/2024 7:20 PM [facility] Blood Venous blood specimen / Unknown 12/22/2024 12/22/2024 6:11 PM EST us Fly SMITH LAB BLOOD ORDERABLES Final Res ult [facility] [address] [place] [address], * Comprehensive metabolic panel (12/22/2024 12:00 AM EST) Sodium 138 133 - 145 mmol/L LAB CHEMISTRY METHOD 12/22/2024 7:21 PM [facility] Potassium 4.9 3.5 - 5.5 mmol/L LAB CHEMISTRY METHOD 12/22/2024 7:21 PM [facility] Chloride 104 96 - 110 mmol/L LAB CHEMISTRY METHOD 12/22/2024 7:21 PM [facility] CO2 26 21 - 32 mmol/L LAB CHEMISTRY METHOD 12/22/2024 7:21 PM [facility] Anion Gap 8 3 - 11 LAB CHEMISTRY METHOD 12/22/2024 7:21 PM [facility] Glucose 76 70 - 100 mg/dL LAB CHEMISTRY METHOD 12/22/2024 7:21 PM [facility] BUN 11 5 - 25 mg/dL LAB CHEMISTRY METHOD 12/22/2024 7:21 PM [facility] Creatinine 0.74 0.50 - 1.10 mg/dL LAB CHEMISTRY METHOD 12/22/2024 7:21 PM [facility] eGFR 86 >=60 mL/min/1. 73m2 LAB CHEMISTRY METHOD 12/22/2024 7:21 PM [facility] Comment:Calculation based on the Chronic Kidney Disease Epidemiology Collaboration (CKD-EPI) equation refit without adjustment for race. BUN/Creatinine Ratio 14.9 LAB CHEMISTRY METHOD 12/22/2024 7:21 PM [facility] Calcium 9.4 8.5 - 10.5 mg/dL LAB CHEMISTRY METHOD 12/22/2024 7:21 PM [facility] AST (SGOT) 22 10 - 42 unit/L LAB CHEMISTRY METHOD 12/22/2024 7:21 PM [facility] ALT (SGPT) 19 10 - 60 unit/L LAB CHEMISTRY METHOD 12/22/2024 7:21 PM [facility] Alkaline Phosphatase 110 42 - 121 unit/L LAB CHEMISTRY METHOD 12/22/2024 7:21 PM [facility] Total Protein 6.6 6.0 - 8.0 g/dL LAB CHEMISTRY METHOD 12/22/2024 7:21 PM [facility] Albumin 3.3 3.2 - 5.0 g/dL LAB CHEMISTRY METHOD 12/22/2024 7:21 PM [facility] Total Bilirubin 0.5 0.0 - 1.4 mg/dL LAB CHEMISTRY METHOD 12/22/2024 7:21 PM [facility] Blood Venous blood specimen / Unknown 12/22/2024 12/22/2024 6:11 PM EST us Fly SMITH LAB BLOOD ORDERABLES Final Res ult [facility] [address] [place] [address], documented in this encounter Visit Diagnoses Diagnosis Hypothyroidism, unspecified Other fatigue Encounter for general adult medical examination without abnormal findings Gout, unspecified Vitamin D deficiency, unspecified documented in this encounter Care Teams Seat Covers Trimmer Relationship Specialty Start Date End Date Jesse Anthony MD [address] [facility] [address] [place] [address] PCP - General Internal Medicine 10/07/11 documented as of this encounter
--- OUTSIDE RECORDS SUMMARY | 2025-10-10 14:11 | XMS_ITS | Patient Health Record ---
Author Organization [employer] Address [address] [facility] [address] [place] [address] Support Name Relationship Address Phone BRIT ANDRES Guarantor Unknown [phone] Allergies No Known Allergies Reason For Referral No Information Medications Medication SIG (Take, Route, Frequency, Duration) Notes Start Date End Date Status Rosuvastatin Calcium 10 MG 1 tablet Oral ly Once a day Active Eliquis 5 MG 1 tablet Orally Twic e a day Active Toprol XL 50 MG 1 tablet Orally Once a day Active Levothyroxine Sodium 88 MCG 1 capsule in the morning on an empty stomach Orally Once a day Active Omeprazole 40 MG 1 capsule 30 minutes before morning meal Orally Once a day Active DULoxetine HCl 60 MG 1 capsule Orally On ce a day Active Immunizations Vaccine Route Administration Date Status Comme nts COVID Mark Anthony Unknown 01/09/2021 Administered COVID Mark Anthony Unknown 08/31/2021 Administered COVID-19 Moderna Unknown 08/08/2022 Administered Flu Unknown 06/19/2022 Administered Pneumococcal conjugate PCV 13 Unknown 01/20/2017 Admini stered Social History Tobacco Use: Social History Observation Description Date Details (start date - stop date) Former Smoker NA - NA Tobacco Use/Smoking Question Answer Notes Are you a former smoker Alcohol Screen (Audit-C) Question Answer Notes Did you have a drink containing alcohol in the p ast year? No Points 0 Interpretation Negative Problems Problem Type SNOMED Code ICD Code Onset Dates Problem Status W/U Status Risk Notes Problem Hypothyroidism (26238638) Hypothyroidism, unspecified (E03.9) Active confirmed Problem Morbid obesity (disorder) (694855021) Morbid (severe) obesity due to excess calories (E66.01) Active confirmed Problem Mixed hyperlipidemia (906938144) Mixed hyperlipidemia (E78.2) Active confirmed Problem Gastro-esophageal reflux disease without esophagitis (318321252) Gastro-esophageal reflux disease without esophagitis (K21.9) Active confirmed Problem Fibromyalgia (837509925) Fibromyalgia (M79.7) Active confirmed Problem Essential hypertension (30159218) Essential (primary) hypertension (I10) Active confirmed Problem Atrial fibrillation (01017417) Unspecified atrial fibrillation (I48.91) Active confirmed Plan Of Treatment No Information Insurance Providers Payer Name Payer Address Payer Phone Subscriber Number Group Number Insured Name Patient Relationship to Insured Coverage Start Date Coverage End Date Medicare [address] [place] [phone] [id number] ANDRES PEREA Self - patient is the insured 7 [place] [employer] Medicaid [address] [place] [address] [id number] ANDRES PEREA Self - patient is the insured Medical (General) History Medical History History ICD Code hypothyroidism GERD hypertension hyperlipidemia atrial fibrillation s/p cardioversion fibromyalgia Surgical History Surgery Date(Month/Year) left total knee replacement
--- OUTSIDE RECORDS SUMMARY | 2025-10-10 14:12 | XMS_ITS ---
Author Name [facility] Organization Unknown Encounters Encounter Type Encounter Reason Primary Diagnosis Location Date Ambulatory On license of [facility] 08/16/2024 Emergency Unspecified fall , initial encounter [facility] 12/16/2021 Care Team Organization Name Specialty Phone Email Start Date End Da te [facility] 02/11/2025 [facility] 11/20/2024 [facility] 05/05/2024 03/31/20 [facility] 08/26/2022 03/31/20 [facility] 12/16/2021 06/06/2024 [facility] 12/16/2021
--- OUTSIDE RECORDS SUMMARY | 2025-10-10 14:12 | XMS_ITS | Clinical Summary ---
Author Organization [facility] Address [address] [place] [phone] Phone Care Team Providers Care Slurry Blender Name Role Phone Aurora Calzada HARDWARE ASSEMBLER Primary Care Provider Unavailable Social History Tobacco Use Types Packs/Day Years Used Date Smoking Tobacco: Never Assessed Education Answer Date Recorded Are you interested in more education? Not on michael e 04/28/2025 Are you concerned about learning? Not on file 04/28/2025 No 04/28/2025 No 04/28/2025 Digital Access Answer Date Recorded No 04/28/2025 No 04/28/2025 Reliable internet access at home? Not on file 04/28/2025 Device with a working camera? Not on file Comments Unknown Sex and Gender Information Value Date Recorded Sex Assigned at Not on file Legal Sex Female 9:35 AM EDT Gender Identity Not on file Sexual Orientation Not on file Plan of Treatment Upcoming Encounters Date Type Department Care Team (Late st Contact Info) Description 01/25/2026 2:40 PM EDT Office Visit [facility] [address] [place] [id number] Oxana Simmons MD [address] [place] [phone] [email or web address] Health Maintenance Due Date Last Done Comments Adult Td,Tdap Booster 1950 LIPID PANEL 1951 DEPRESSION SCREENING 1963 SMOKING Hx and SMOKELESS TOB ACCO SCREENING 12/27/1964 HEPATITIS C SCREENING 12/27/1969 MAMMOGRAM 1991 COLOGUARD 12/27/1996 COLONOSCOPY 12/27/1996 COLORECTAL CANCER SCREENING 12/27/1996 FIT TEST 12/27/1996 FOBT 12/27/1996 SIGMOIDOSCOPY 12/27/1996 VIRTUAL COLONOSCOPY 12/27/1996 PNEUMOCOCCAL VACCINES (50+ y ears) (1 of 1 - PCV) 12/27/2001 ZOSTER VACCINES (1 of 2) 12/27/2001 OSTEOPOROSIS SCREENING INITI AL (ONE-TIME) 12/27/2016 INFLUENZA VACCINE (#1) 2025 COVID-19 VACCINE (1 - 2024-2 6 season) 2025 RSV VACCINE (1 - 1-dose 75+ series) 12/27/2026 HEPATITIS A VACCINES Aged Out No long er eligible based on patient's age to complete this topic HIB VACCINES Aged Out No longer eligi ble based on patient's age to complete this topic MENINGOCOCCAL VACCINES (ACWY) Aged Out No longer eligible based on patient's age to complete this topic MENINGOCOCCAL VACCINES (B) Aged Out N o longer eligible based on patient's age to complete this topic Medical Devices Not on file Insurance [facility] [place] MEDICARE PART A & B [facility] [place] BL[place] MEDICARE PART A & B [facility] [place] BL[place] MEDICARE PART A & [facility] PPO BLUE REPLACEMENT MEDICARE PART A & B [facility] MEDICARE PPO BLUE REPLACEMENT MEDICARE PART A & B [facility] [place]AC[place] MEDICARE PART A & B Care Teams Slurry Blender Relationship Specialty Start Date End Date Aurora Calzada NP [address] [place] [id number] PCP - General Nurse Practitioner 02/16/25 Additional Source Comments The information contained in this document represents components of the legal health record. It is not the complete legal health record.[facility]
== END 2025-10-10 14:53 | disposition home or self-care (01) ==
PROVIDERS: PCP Nurse Practitioner; Visit Provider Physician Assistant Medical
DX: J06.9 Acute upper respiratory infection, unspecified (principal)

== ENCOUNTER 2025-10-11 10:15 | Outpatient (REF) | payer MEDICARE, SELFPAY ==
--- OUTSIDE RECORDS SUMMARY | 2024-04-11 06:00 | XMS_ITS ---
Author Organization [facility], [place] Address [address] [facility] 1 [place] [address] Care Team Providers Care Printer Operator Name Role Phone Migration, Provider Unavailable Unavailable REASON FOR VISIT Follow-up Appt Encounters Encounter Location Date Provider Diagnosis [address] [address] 04/11/2024 Provider Migration Plan Of Treatment No Information Progress Notes * JAYDA PEREAEDOB:[birth year] (74 yo F)Acc No.[id number]:04/11/2024 Progress Notes Patient: Winsome LEYVANEELAJIHANANDRES Provider: Kathi Kaur :1950 A ge:73 Y S ex:Female Date:04/11/2024 Address:[address] [place], [place] Subjective: * Chief Complaints: * F ollow-up Appt * Ocular Surgical History: Objective: Vision Examination: * Electronic signature of Prov ider Migration on 10/11/2025 at 10:26 AM EST Sign off status: Pending * Provider: Kathi dejesus Migration Date: 0 04/11/2024 Generated for Jolanta longo/Sharon/Ruismitting on: 1 12/12/2024 10:26 AM EST
--- OUTSIDE RECORDS SUMMARY | 2024-10-03 05:30 | XMS_ITS ---
Author Organization [facility] [place] Address [address] [facility] 1 [place] [address] Care Team Providers Care Oracle Technical Developer Name Role Phone Migration, Provider Unavailable Unavailable REASON FOR VISIT CPX Encounters Encounter Location Date Provider Diagnosis [facility], [address] [address] 10/03/2024 Provider Migration Plan Of Treatment No Information Progress Notes * JAYDA PEREAEDOB:[birth year] (74 yo F)Acc No.[id number]:10/03/2024 Progress Notes Patient: Winsome CINDYNANIANDRES KEITA Provider: Kathi Kaur :1950 A ge:73 Y S ex:Female Date:10/03/2024 Address[address] [place], [place] Subjective: * Chief Complaints: * C PX * Ocular Surgical History: Objective: Vision Examination: * Electronic signature of Prov ider Migration on 10/11/2025 at 10:25 AM EST Sign off status: Pending * Provider: Kathi dejesus Migration Date: 12/04/2023 Generated for Jolanta longo/Sharon/Ruismitting on: 12/12/2024 10:25 AM EST
--- OUTSIDE RECORDS SUMMARY | 2024-10-25 05:45 | XMS_ITS ---
Author Organization [facility], [place] Address [address] [facility] 1 [place] [address] Care Team Providers Care Operator Helper Name Role Phone Fly Estrella Unavailable [phone] REASON FOR VISIT Sick Visit Encounters Encounter Location Date Provider Diagnosis [address] [address] 10/25/2024 Fly Estrella Plan Of Treatment No Information Progress Notes * JAYDA PEREAEDOB:[birth year] (74 yo F)Acc No.[id number]:10/25/2024 Progress Notes Patient: ANDRES ABBOTT Provider: Bridgette SMITH :1950 A ge:73 Y S ex:Female Date:10/25/2024 Address:[facility] [address] [facility] Subjective: * Chief Complaints: * S ick Visit * Ocular Surgical History: Objective: Vision Examination: * Electronic signature of Brandon Estrella PA-C on 10/11/2025 at 10:25 AM EST Sign off status: Pending * Provider: Bridgette SMITH Date: 0 10/25/2024 Generated for Uniquei qing/Sharon/eTransmitting on: 12/12/2024 10:25 AM EST
--- OUTSIDE RECORDS SUMMARY | 2024-12-22 05:30 | XMS_ITS ---
Author Organization [facility], [place] Address [address] [facility] [address] [place] [address] Care Team Providers Care Financial Aid Coordinator Name Role Phone Migration, Provider Unavailable Unavailable REASON FOR VISIT CPX Encounters Encounter Location Date Provider Diagnosis [facility], [address] [address] 12/22/2024 Provider Migration Plan Of Treatment No Information Progress Notes * JAYDA PEREAEDOB:[birth year] (74 yo F)Acc No.[id number]:12/22/2024 Progress Notes Patient: Winsome ADNRES CRUZ Provider: Kathi Kaur :1950 A ge:73 Y S ex:Female Date:12/22/2024 Address[address] [place], [place] Subjective: * Chief Complaints: * C PX * Ocular Surgical History: Objective: Vision Examination: * Electronic signature of Prov ider Migration on 10/11/2025 at 10:25 AM EST Sign off status: Pending * Provider: Kathi dejesus Migration Date: 0 12/22/2024 Generated for Jolanta longo/Sharon/Ruismitting on: 1 12/12/2024 10:25 AM EST
--- OUTSIDE RECORDS SUMMARY | 2024-12-22 05:30 | XMS_ITS ---
Author Organization [facility], [place] Address [address] [facility] 1 [place] [address] Care Team Providers Care Driver Courier Name Role Phone Fly Estrella Unavailable [phone] REASON FOR VISIT CPX Encounters Encounter Location Date Provider Diagnosis [address] [address] 12/22/2024 Fly Estrella Plan Of Treatment No Information Progress Notes * BRITJAYDA KEITAEDOB:[birth year] (74 yo F)Acc No.[id number]:12/22/2024 Progress Notes Patient: ANDRES ABBOTT Provider: Bridgette SMITH :1950 A ge:73 Y S ex:Female Date:12/22/2024 Address:[address] [place], [place] [id number] Subjective: * Chief Complaints: * C PX * Ocular Surgical History: Objective: Vision Examination: * Electronic signature of Brandon Estrella PA-C on 10/11/2025 at 10:25 AM EST Sign off status: Pending * Provider: Bridgette SMITH Date: 0 12/22/2024 Generated for Uniquei qing/Sharon/eTransmitting on: 1 12/12/2024 10:25 AM EST
--- OUTSIDE RECORDS SUMMARY | 2025-01-24 05:45 | XMS_ITS ---
Author Organization [facility] [place] Address [address] [facility] 1 [place] [address] Care Team Providers Care Registered Nurse Maternal Child Name Role Phone Fly Estrella Unavailable [phone] REASON FOR VISIT Follow-up Appt Encounters Encounter Location Date Provider Diagnosis [address] [address] 01/24/2025 Fly Estrella Plan Of Treatment No Information Progress Notes * JAYDA PEREAEDOB:[birth year] (74 yo F)Acc No.[id number]:01/24/2025 Progress Notes Patient: ANDRES ABBOTT Provider: Bridgette SMITH :1950 A ge:74 Y S ex:Female Date:01/24/2025 Address:[address] [place], [place] Subjective: * Chief Complaints: * F ollow-up Appt * Ocular Surgical History: Objective: Vision Examination: * Electronic signature of Brandon Estrella PA-C on 10/11/2025 at 10:25 AM EST Sign off status: Pending * Provider: Bridgette SMITH Date: 0 01/24/2025 Generated for Uniquei ng/Facleo/eTransmitting on: 1 12/12/2024 10:25 AM EST
--- OUTSIDE RECORDS SUMMARY | 2025-10-11 10:25 | XMS_ITS | Encounter Summary ---
[facility] Organization [facility] Address [address] [place] [address] Care Team Providers Care Instructor Physical Education Name Role Phone Jesse Anthony MD Primary Care Provider [phone] Encounter Details Date Type Department Care Team (Late st Contact Info) Description 12/22/2024 Lab Requisition [facility] - Main Lab 299 [facility] [place] [phone] Fly Estrella PA 299 [facility] [address] [place] [address] Hypothyroidism, unspecified; Other fatigue; Encounter for general [...] Hold for add-ons. 12/22/2024 8:01 PM EST [facility] Comment:Auto resulted. Blood Venous blood specimen / Unknown 12/22/2024 12/22/2024 6:11 PM EST us Fly SMITH LAB BLOOD ORDERABLES Final Res ult [facility] [address] [place] [address], [place] [phone] * (ABNORMAL) CBC auto differential (12/22/2024 12:00 AM EST) WBC 5.0 4.8 - 10.8 K/mcL LAB HEMETOLOGY METHOD 12/22/2024 7:58 PM [facility] RBC 4.60 3.80 - 4.80 M/mcL LAB HEMETOLOGY METHOD 12/22/2024 7:58 PM [facility] Hemoglobin 13.8 11.5 - 16.0 g/dL LAB HEMETOLOGY METHOD 12/22/2024 7:58 PM [facility] Hematocrit 44.0 35.0 - 47.0 % LAB HEMETOLOGY METHOD 12/22/2024 7:58 PM [facility] MCV 95.9 79.0 - 98.0 FL LAB HEMETOLOGY METHOD 12/22/2024 7:58 PM [facility] MCH 30.1 27.0 - 32.0 pcg LAB HEMETOLOGY METHOD 12/22/2024 7:58 PM [facility] MCHC 31.4(L) 32.0 - 37.0 g/dL LAB HEMETOLOGY METHOD 12/22/2024 7:58 PM [facility] RDW 11.9 11.0 - 15.0 % LAB HEMETOLOGY METHOD 12/22/2024 7:58 PM [facility] Platelets 314 130 - 400 K/mcL LAB HEMETOLOGY METHOD 12/22/2024 7:58 PM [facility] MPV 10.4 7.0 - 11.0 FL LAB HEMETOLOGY METHOD 12/22/2024 7:58 PM [facility] NRBC 0.0 <1.0 % LAB HEMETOLOGY METHOD 12/22/2024 7:58 PM [facility] NRBC Absolute 0.00 <0.10 K/mcL LAB HEMETOLOGY METHOD 12/22/2024 7:58 PM [facility] Neutrophils Relative 52.1 % LAB HEMETOLOGY METHOD 12/22/2024 7:58 PM [facility] Lymphocytes Relative 34.9 % LAB HEMETOLOGY METHOD 12/22/2024 7:58 PM [facility] Monocytes Relative 7.2 % LAB HEMETOLOGY METHOD 12/22/2024 7:58 PM [facility] Eosinophils Relative 3.6 % LAB HEMETOLOGY METHOD 12/22/2024 7:58 PM [facility] Basophils Relative 1.8 % LAB HEMETOLOGY METHOD 12/22/2024 7:58 PM [facility] Immature Granulocytes Relative 0.4 % LAB HEMETOLOGY METHOD 12/22/2024 7:58 PM [facility] Neutrophils Absolute 2.62 1.50 - 7.00 K/mcL LAB HEMETOLOGY METHOD 12/22/2024 7:58 PM [facility] Lymphocytes Absolute 1.75 1.00 - 5.00 K/mcL LAB HEMETOLOGY METHOD 12/22/2024 7:58 PM [facility] Monocytes Absolute 0.36 0.20 - 1.00 K/mcL LAB HEMETOLOGY METHOD 12/22/2024 7:58 PM [facility] Eosinophils Absolute 0.18 0.00 - 0.50 K/mcL LAB HEMETOLOGY METHOD 12/22/2024 7:58 PM [facility] Basophils Absolute 0.09 0.00 - 0.20 K/mcL LAB HEMETOLOGY METHOD 12/22/2024 7:58 PM EST [facility] Immature Granulocytes Absolute 0.02 0.00 - 0.03 K/[facility] LAB HEMETOLOGY METHOD 12/22/2024 7:58 PM EST [facility] Blood Venous blood specimen / Unknown 12/22/2024 12/22/2024 6:11 PM EST Fly SMITH LAB BLOOD ORDERABLES Final Res ult [facility] [address] [place] [address], [place] [phone] * (ABNORMAL) Vitamin D 25 hydroxy (12/22/2024 12:00 AM EST) Vit D, 25-Hydroxy 21.7(L) 30.0 - 80.0 ng/mL LAB CHEMISTRY METHOD 12/22/2024 7:27 PM EST [facility] Blood Venous blood specimen / Unknown 12/22/2024 12/22/2024 6:11 PM EST lFy SMITH LAB BLOOD ORDERABLES Final Res ult [facility] [address] [place] [address], [place] [phone] * (ABNORMAL) Thyroid stimulating hormone (12/22/2024 12:00 AM EST) TSH 0.24(L) 0.40 - 4.00 mcIU/mL LAB CHEMISTRY METHOD 12/22/2024 7:28 PM EST [facility] Blood Venous blood specimen / Unknown 12/22/2024 12/22/2024 6:11 PM EST us Fly SMITH LAB BLOOD ORDERABLES Final Res ult Performing Organization Address City/[facility]/ZIP Co de Phone Number [facility] [address] [place] [address], [place] [phone] * Hemoglobin A1c (12/22/2024 12:00 AM EST) Hemoglobin A1C 5.6 <6.5 % LAB CHEMISTRY METHOD 12/23/2024 10:33 AM EST [facility] Mean Bld Glu Estim. 114 mg/dL LAB CHEMISTRY METHOD 12/23/2024 10:33 AM EST [facility] Blood Venous blood specimen / Unknown 12/22/2024 12/22/2024 6:11 PM EST us Fly SMITH LAB BLOOD ORDERABLES Final Res ult Performing Organization Address [facility]/ZIP Co de Phone Number [facility] [address] [place] [address], [place] [phone] * Thyroxine free (12/22/2024 12:00 AM EST) Free T4 1.40 0.70 - 1.80 ng/dL LAB CHEMISTRY METHOD 12/22/2024 7:28 PM EST [facility] Blood Venous blood specimen / Unknown 12/22/2024 12/22/2024 6:11 PM EST Fly SMITH LAB BLOOD ORDERABLES Final Res ult Performing Organization Address City/[facility]/ZIP Co de Phone Number [facility] [address] [place] [address], [place] [phone] * (ABNORMAL) Lipid panel with reflex to direct LDL (12/22/2024 12:00 AM EST) Cholesterol 230(H) 0 - 200 mg/dL LAB CHEMISTRY METHOD 12/22/2024 7:20 PM EST [facility] Triglycerides 107 0 - 150 mg/dL LAB CHEMISTRY METHOD 12/22/2024 7:20 PM [facility] HDL 68 >=40 mg/dL LAB CHEMISTRY METHOD 12/22/2024 7:20 PM [facility] LDL Calculated 141(H) 0 - 100 mg/dL LAB CHEMISTRY METHOD 12/22/2024 7:20 PM [facility] VLDL Cholesterol Julio C 21.4 mg/dL LAB CHEMISTRY METHOD 12/22/2024 7:20 PM [facility] Non HDL Chol. (LDL+VLDL) 162(H) <145 mg/dL LAB CHEMISTRY METHOD 12/22/2024 7:20 PM [facility] Chol/HDL Ratio 3.4 0.0 - 4.4 LAB CHEMISTRY METHOD 12/22/2024 7:20 PM [facility] Blood Venous blood specimen / Unknown 12/22/2024 12/22/2024 6:11 PM EST us Fly SMITH LAB BLOOD ORDERABLES Final Res ult [facility] [address] [place] [address], * Comprehensive metabolic panel (12/22/2024 12:00 AM EST) Sodium 138 133 - 145 mmol/L LAB CHEMISTRY METHOD 12/22/2024 7:21 PM [facility] Potassium 4.9 3.5 - 5.5 mmol/L LAB CHEMISTRY METHOD 12/22/2024 7:21 PM [facility] Chloride 104 96 - 110 mmol/L LAB CHEMISTRY METHOD 12/22/2024 7:21 PM [facility] CO2 26 21 - 32 mmol/L LAB CHEMISTRY METHOD 12/22/2024 7:21 PM [facility] Anion Gap 8 3 - 11 LAB CHEMISTRY METHOD 12/22/2024 7:21 PM [facility] Glucose 76 70 - 100 mg/dL LAB CHEMISTRY METHOD 12/22/2024 7:21 PM [facility] BUN 11 5 - 25 mg/dL LAB CHEMISTRY METHOD 12/22/2024 7:21 PM [facility] Creatinine 0.74 0.50 - 1.10 mg/dL LAB CHEMISTRY METHOD 12/22/2024 7:21 PM [facility] eGFR 86 >=60 mL/min/1. 73m2 LAB CHEMISTRY METHOD 12/22/2024 7:21 PM [facility] Comment:Calculation based on the Chronic Kidney Disease Epidemiology Collaboration (CKD-EPI) equation refit without adjustment for race. BUN/Creatinine Ratio 14.9 LAB CHEMISTRY METHOD 12/22/2024 7:21 PM [facility] Calcium 9.4 8.5 - 10.5 mg/dL LAB CHEMISTRY METHOD 12/22/2024 7:21 PM [facility] AST (SGOT) 22 10 - 42 unit/L LAB CHEMISTRY METHOD 12/22/2024 7:21 PM [facility] ALT (SGPT) 19 10 - 60 unit/L LAB CHEMISTRY METHOD 12/22/2024 7:21 PM [facility] Alkaline Phosphatase 110 42 - 121 unit/L LAB CHEMISTRY METHOD 12/22/2024 7:21 PM [facility] Total Protein 6.6 6.0 - 8.0 g/dL LAB CHEMISTRY METHOD 12/22/2024 7:21 PM [facility] Albumin 3.3 3.2 - 5.0 g/dL LAB CHEMISTRY METHOD 12/22/2024 7:21 PM [facility] Total Bilirubin 0.5 0.0 - 1.4 mg/dL LAB CHEMISTRY METHOD 12/22/2024 7:21 PM [facility] Blood Venous blood specimen / Unknown 12/22/2024 12/22/2024 6:11 PM EST us Fly SMITH LAB BLOOD ORDERABLES Final Res ult [facility] [address] [place] [address], documented in this encounter Visit Diagnoses Diagnosis Hypothyroidism, unspecified Other fatigue Encounter for general adult medical examination without abnormal findings Gout, unspecified Vitamin D deficiency, unspecified documented in this encounter Care Teams Instructor Physical Education Relationship Specialty Start Date End Date Jesse Anthony MD 299 [facility] [address] [place] [address] PCP - General Internal Medicine 10/07/11 documented as of this encounter
--- OUTSIDE RECORDS SUMMARY | 2025-10-11 10:25 | XMS_ITS | Patient Health Record ---
Author Organization [facility] Address [address] [facility] [address] [place] [address] Support Name Relationship Address Phone BRIT ANDRES Guarantor Unknown [phone] Allergies No Known Allergies Reason For Referral [...] Status W/U Status Risk Notes Problem Hypothyroidism (71079449) Hypothyroidism, unspecified (E03.9) Active confirmed Problem Morbid obesity (disorder) (149647789) Morbid (severe) obesity due to excess calories (E66.01) Active confirmed Problem Mixed hyperlipidemia (750514121) Mixed hyperlipidemia (E78.2) Active confirmed Problem Gastro-esophageal reflux disease without esophagitis (942993322) Gastro-esophageal reflux disease without esophagitis (K21.9) Active confirmed Problem Fibromyalgia (003096461) Fibromyalgia (M79.7) Active confirmed Problem Essential hypertension (56273633) Essential (primary) hypertension (I10) Active confirmed Problem Atrial fibrillation (99762893) Unspecified atrial fibrillation (I48.91) Active confirmed Plan Of Treatment No Information Insurance Providers Payer Name Payer Address Payer Phone Subscriber Number Group Number Insured Name Patient Relationship to Insured Coverage Start Date Coverage End Date Medicare [address] [place] [phone] [id number] ANDRES PEREA Self - patient is the insured 7 [place] [id number] Medicaid [address] [place] [address] [id number] ANDRES PEREA Self - patient is the insured Medical (General) History Medical History History ICD Code hypothyroidism GERD hypertension hyperlipidemia atrial fibrillation s/p cardioversion fibromyalgia Surgical History Surgery Date(Month/Year) left total knee replacement
--- OUTSIDE RECORDS SUMMARY | 2025-10-11 10:25 | XMS_ITS | Patient Health Record ---
Author Organization [facility] Address [address] [place] [address] Care Team Providers Care Tape Controlled Machine Stitcher Name Role Phone Fly Estrella Unavailable [phone] Migration, Provider Unavailable Unavailable Reason For Referral No Information Encounters Encounter Location Date Provider Diagnosis [facility] [address] [address] 10/25/2024 Fly Estrella [facility] [address] [address] 12/22/2024 Fly Estrella [facility] [address] [address] 12/22/2024 Provider Migration [facility] [address] [facility] [address] [address] 01/24/2025 Fly Estrella Plan Of Treatment No Information Insurance Providers Payer Name Payer Address Payer Phone Subscriber Number Group Number Insured Name Patient Relationship to Insured Coverage Start Date Coverage End Date [employer] [place] [employer] Pf [address] [place] [phone] [id number] ANDRES PEREA Self - patient is the insured
--- OUTSIDE RECORDS SUMMARY | 2025-10-11 10:25 | XMS_ITS | Clinical Summary ---
Author Organization [facility] Address [address] [place] [address] Phone Care Team Providers Care Professor Of History Name Role Phone Aurora Calzada WEIGHT AND BALANCE CONTROL AGENT Primary Care Provider Unavailable Social History Tobacco [...] Description 01/25/2026 2:40 PM EDT Office Visit [facility] [address] [place] [address] Oxana Simmons MD [address] [place] [address] [email or web address] Health Maintenance Due Date Last Done Comments [...] topic Medical Devices Not on file Insurance [employer] [place] P[place] BLUE REPLACEMENT MEDICARE PART A & B [employer] [place] MEDICARE PART A & B [employer] [place] BL[place] MEDICARE PART A & [facility] P[facility] BLUE REPLACEMENT MEDICARE PART A & B [employer] [facility] MEDICARE PPO BLUE REPLACEMENT MEDICARE PART A & B [employer] P[place] BLUE REPLAC[place] MEDICARE PART A & B Care Teams Professor Of History Relationship Specialty Start Date End Date Aurora Calzada NP [address] [place] [phone] PCP - General Nurse Practitioner 02/16/25 Additional Source Comments The information contained in this document represents components of the legal health record. It is not the complete legal health record.[facility]
--- OUTSIDE RECORDS SUMMARY | 2025-10-11 10:25 | XMS_ITS | Clinical Summary ---
Author Organization [facility] Address [address] [place] [address] Care Team Providers Care Welfare Supervisor Name Role Phone Ming Anthony MD Primary Care Provider [phone] Surgical History Surgery Date Site/Laterality Comments HERNIA REPAIR PROCEDURE: [place] REPAIR FIRST ABDOMINAL WALL HERNIA CHOLECYSTECTOMY PROCEDURE: [place] LAPAROSCOPY SURG CHOLECYSTECTOMY OTHER SURGICAL HISTORY PROCEDURE: [...] findings Gout, unspecified Vitamin D deficiency, unspecified [facility] SCREENING DIGITAL Routine 07/09/2022 3:13 PM EDT Encounter for screening mammogram for malignant neoplasm of breast [facility] DEXA AXIAL SKELETON Routine 06/15/2018 10:27 AM EDT Encounter for screening for osteoporosis from Last 3 Months or Most Recently Relevant to Health Maintenance Results * (ABNORMAL) Lipid panel with reflex to direct LDL (12/22/2024 12:00 AM EST) Cholesterol 230(H) 0 - 200 mg/dL LAB CHEMISTRY METHOD 12/22/2024 7:20 PM [facility] Triglycerides 107 0 - 150 mg/dL LAB CHEMISTRY METHOD 12/22/2024 7:20 PM [facility] HDL 68 >=40 mg/dL LAB CHEMISTRY METHOD 12/22/2024 7:20 PM [facility] LDL Calculated 141(H) 0 - 100 mg/dL LAB CHEMISTRY METHOD 12/22/2024 7:20 PM [facility] VLDL Cholesterol Julio C 21.4 mg/dL LAB CHEMISTRY METHOD 12/22/2024 7:20 PM [facility] Non HDL Chol. (LDL+VLDL) 162(H) <145 mg/dL LAB CHEMISTRY METHOD 12/22/2024 7:20 PM [facility] Chol/HDL Ratio 3.4 0.0 - 4.4 LAB CHEMISTRY METHOD 12/22/2024 7:20 PM [facility] Blood Venous blood specimen / Unknown 12/22/2024 12/22/2024 6:11 PM EST us Fly SMITH LAB BLOOD ORDERABLES Final Res ult [facility] [address] [place] [address], [place] [phone] * Comprehensive metabolic panel (12/22/2024 12:00 AM EST) Sodium 138 133 - 145 mmol/L LAB CHEMISTRY METHOD 12/22/2024 7:21 PM [facility] Potassium 4.9 3.5 - 5.5 mmol/L LAB CHEMISTRY METHOD 12/22/2024 7:21 PM [facility] Chloride 104 96 - 110 mmol/L LAB CHEMISTRY METHOD 12/22/2024 7:21 PM [facility] CO2 26 21 - 32 mmol/L LAB CHEMISTRY METHOD 12/22/2024 7:21 PM [facility] Anion Gap 8 3 - 11 LAB CHEMISTRY METHOD 12/22/2024 7:21 PM [facility] Glucose 76 70 - 100 mg/dL LAB CHEMISTRY METHOD 12/22/2024 7:21 PM [facility] BUN 11 5 - 25 mg/dL LAB CHEMISTRY METHOD 12/22/2024 7:21 PM [facility] Creatinine 0.74 0.50 - 1.10 mg/dL LAB CHEMISTRY METHOD 12/22/2024 7:21 PM [facility] eGFR 86 >=60 mL/min/1. 73m2 LAB CHEMISTRY METHOD 12/22/2024 7:21 PM [facility] Comment:Calculation based on the Chronic Kidney Disease Epidemiology Collaboration (CKD-EPI) equation refit without adjustment for race. BUN/Creatinine Ratio 14.9 LAB CHEMISTRY METHOD 12/22/2024 7:21 PM [facility] Calcium 9.4 8.5 - 10.5 mg/dL LAB CHEMISTRY METHOD 12/22/2024 7:21 PM [facility] AST (SGOT) 22 10 - 42 unit/L LAB CHEMISTRY METHOD 12/22/2024 7:21 PM [facility] ALT (SGPT) 19 10 - 60 unit/L LAB CHEMISTRY METHOD 12/22/2024 7:21 PM [facility] Alkaline Phosphatase 110 42 - 121 unit/L LAB CHEMISTRY METHOD 12/22/2024 7:21 PM [facility] Total Protein 6.6 6.0 - 8.0 g/dL LAB CHEMISTRY METHOD 12/22/2024 7:21 PM [facility] Albumin 3.3 3.2 - 5.0 g/dL LAB CHEMISTRY METHOD 12/22/2024 7:21 PM [facility] Total Bilirubin 0.5 0.0 - 1.4 mg/dL LAB CHEMISTRY METHOD 12/22/2024 7:21 PM [facility] Blood Venous blood specimen / Unknown 12/22/2024 12/22/2024 6:11 PM EST us Fly SMITH LAB BLOOD ORDERABLES Final Res ult [facility] [address] [place] [address], [place] [phone] * KALLIE SCREENING DIGITAL (07/09/2022 3:13 PM EDT) Anatomical Region Laterality Modality Mammography 07/09/2022 10:0 9 AM EDT Narrative 07/09/2022 3:13 PM EDT [facility] Diagnostic Imaging Department [address] [place] [address] Patient: ANDRES WILLS /Age/Sex: 1950 - 71 - F Unit#: [id number] Location/Status: [facility] CLI Mnemonic/Ordering Site: [facility] Ordering Physician: MING ANTHONY MD Kallie Screening Digital - 07/09/22 - 1105 History: Bilateral breast cancer screening. Technique: Bilateral digital mammography. Conventional CC and MLO projections with tomosynthesis MLO views and computer aided detection. Findings: Comparison: [facility] 10/10/2019, dating back to 01/17/2013. Breast tissue is mostly fatty replaced (category a density) bilaterally (as calculated by [employer] software). There are benign calcifications bilaterally. There is no suspicious group of microcalcification, no suspicious mass, architectural distortion or suspicious asymmetry. Impression: No evidence of malignancy. BIRADS category 2, benign findings, 3342F [id number], [address] Note: Patient information entered into a reminder system with a target due date for the next mammogram; PQRI II [id number] Dictating Physician: MIGUELITO TYLER MD Electronically Signed by: MIGUELITO TYLER MD Dic Date/Time: 07/09/22 1507 Sign date/Time: 07/09/22 1513 Procedure Note Miguelito Tyler MD - 10/08/2022 [facility] Diagnostic Imaging Department [address] [place] [address] Patient: ANDRES WILLS Fadi Herron/Age/Sex: 1950 - 71 - F Unit#: [id number] Location/Status: SPDIMAM/REG CLI Mnemonic/Ordering Site: [facility] Ordering Physician: MING ANTHONY MD Kallie Screening Digital - 07/09/22 - 1105 History: Bilateral breast cancer screening. Technique: Bilateral digital mammography. Conventional CC and MLOprojections with tomosynthesis MLO views and computer aided detection. Findings: Comparison: [facility] 10/10/2019, dating back to 01/17/2013. Breast tissue is mostly fatty replaced (category a density) bilaterally(as calculated by [email or web address] software). There are benigncalcifications bilaterally. There is no suspicious group of microcalcification, nosuspicious mass, architectural distortion or suspicious asymmetry. Impression: No evidence of malignancy. BIRADS category 2, benign findings, 3342F [id number], [address] Note: Patient information entered into a reminder [...] AM EDT Narrative 06/15/2018 10:27 AM EDT [facility] Diagnostic Imaging Department [address] [place], [place] [address] Patient: ANDRES WILLS Fadi OwensB./Age/Sex: 1950 - 67 - F Unit#: [id number] Location/Status: SPDIMAM/REG CLI Mnemonic/Ordering Site: [facility] Ordering [...] probability of hip fracture of 0.2%. Code 68948 Dictating Physician: PHILOMENA GUSMAN MD Electronically Signed by: PHILOMENA GUSMAN MD Dic Date/Time: 06/15/18 1025 Sign date/Time: 06/15/18 1027 Procedure Note Philomena Gusman MD - 10/07/2022 [facility] Diagnostic Imaging Department [address] [place] [address] Patient: ANDRES WILLS D.O.B./Age/Sex: 1950 67 - F Unit#: [id number] Location/Status: [facility] Mnemonic/Ordering Site: [facility] Ordering Physician: DEMARCUS MCQUEEN MD [facility] Dexa Axial Skeleton - 06/15/18 - 1014 [...] density of the femurs bilaterally is 1.025 gm/bt1flrah is 102% of that of young normals [...] probability of hip fracture of 0.2%. Code 83584 Dictating Physician: PHILOMENA GUSMAN MD Electronically Signed by: PHILOMENA GUSMAN MD Dic Date/Time: 06/15/18 1025 Sign date/Time: 06/15/18 1027 Demarcus Mcqueen MD IMG BI PROCEDURES Final Re sult from Last 3 Months or Most Recently Relevant to Health Maintenance Insurance MEDICARE [place] Care Teams Welfare Supervisor Relationship Specialty Start Date End Date Ming Anthony MD [address] [place] [phone] PCP - General Internal Medicine 10/07/11
--- OUTSIDE RECORDS SUMMARY | 2025-10-11 10:25 | XMS_ITS | Encounter Summary ---
Author Organization [facility] Address [address] [place] [address] Care Team Providers Care Sap Portal Architect Name Role Phone Jesse Anthony MD Primary Care Provider [phone] Encounter Details Date Type Department Care Team (Late st Contact Info) Description 10/25/2024 Lab Requisition [facility] - Main Lab [address] [facility] [place] [id number] Fly Estrella PA [address] [facility] [address] [place] [address] Acute upper respiratory infection, unspecified Social History [...] Procedure Name Priority Date/Time Associated Diagnosis Comments [id number], RSV, FLU A AND B QUALITATIVE RT-PCR, LOCAL REFERENCE LAB Routine 10/25/2024 12:00 AM EST Acute upper respiratory infection, unspecified documented in this encounter Results * [id number], RSV, Influenza A and B qualitative RT-PCR (10/25/2024 12:00 AM EST) SARS COV-2 Not Detected Not Detected LAB MOLECULAR DIAGNOSTICS METHOD 10/25/2024 11:44 PM [facility] Comment: Disclaimer: The manner in which this information is used to guide patient care is the responsibility of the healthcare provider. Testing was performed using the [employer]Br[employer] Alinity m SARS-CoV-2 test. This test has [...] for Healthcare Providers can be found at: https://www.fda.gov/media/061516/download Fact sheet for Patients can be found at: https://www.fda.gov/media/986960/download Influenza A PCR Not Detected Not Detected LAB MOLECULAR DIAGNOSTICS METHOD 10/25/2024 11:44 PM EST [facility] Influenza B PCR Not Detected Not Detected LAB MOLECULAR DIAGNOSTICS METHOD 10/25/2024 11:44 PM EST [facility] RSV PCR Not Detected Not Detected LAB MOLECULAR DIAGNOSTICS METHOD 10/25/2024 11:44 PM [facility] Swab Nasopharyngeal structure / Unknown 10/25/2024 10/25/2024 6:11 PM EST us [facility] MICROBIOLOGY - GENERAL ORD ERABLES Final Result [facility] [address] [place] [address], documented in this encounter Visit Diagnoses Diagnosis Acute upper respiratory infection, unspecified documented in this encounter Additional Health Concerns Infection Onset Date Last Indicated Resolved Time Respiratory Rule-Out 10/25/2024 10/25/2024 025 11:44 PM EST documented as of this encounter Care Teams Sap Portal Architect Relationship Specialty Start Date End Date Jesse Anthony MD [address] [place] [phone] PCP - General Internal Medicine 10/07/11 documented as of this encounter
--- OUTSIDE RECORDS SUMMARY | 2025-10-11 10:25 | XMS_ITS | Encounter Summary ---
Author Organization [facility] Address [address] [place] [address] Care Team Providers Care Manager Distribution Center Name Role Phone Jesse Anthony MD Primary Care Provider [phone] Encounter Details Date Type Department Care Team (Late st Contact Info) Description 12/22/2024 Lab Requisition [facility] - Main Lab [address] [facility] [place] [address] Luis Garrett MD [address] [facility] [address] [place] [phone] Urinary tract infection, site not specified Social [...] specified documented in this encounter Care Teams Manager Distribution Center Relationship Specialty Start Date End Date Jesse Anthony MD [address] [facility] [address] [place] [phone] PCP - General Internal Medicine 10/07/11 documented as of this encounter
--- OUTSIDE RECORDS SUMMARY | 2025-10-11 10:25 | XMS_ITS | Clinical Summary ---
Author Organization [facility] Address [address] [place] [address] Care Team Providers Care Cartoon Artist Name Role Phone Jesse Anthony MD Primary Care Provider [phone] Allergies No known active allergies Social History [...] patient's age to complete this topic Insurance [facility] [place] [employer] Care Teams Cartoon Artist Relationship Specialty Start Date End Date Jesse Anthony MD [address] [place] [id number] PCP - General 12/16/21
[2025-10-11 11:32] LABS: Resp Syncy Virus RNA Qual PCR NEGATIVE (Negative); SARS COV2 PCR INHOUSE NEGATIVE (Negative)
== END 2025-10-11 10:16 | disposition home or self-care (01) ==
LOC: HO.LNP 10:15
PROVIDERS: Visit Provider Physician Assistant Medical
DX: J10.1 Influenza due to other identified influenza virus with other respiratory manifestations (principal); R09.89 Other specified symptoms and signs involving the circulatory and respiratory systems
CPT/HCPCS: 87637